=== PATIENT | male | born 1950 ===

== ENCOUNTER 2018-01-08 20:10 | Emergency (ER) | payer SELFPAY ==
[2018-01-08 20:16] VITALS: BP 154/87; PULSE 72; RESP 18; TEMP 99; O2SAT 99
--- NOTE | 2018-01-08 20:40 | ED PDOC ---
HPI: Psych/Substance Abuse Time Seen by Provider: 01/08/18 20:16 Chief Complaint (Nursing): Psychiatric Evaluation Chief Complaint (Provider): Medical Screening History Per: Patient History/Exam Limitations: no limitations Additional Complaint(s): 67 year old male with a past medical history of hypertension, alcoholism, and gastritis was brought into the ED by [facility] for a psychiatric evaluation. Patient was found ambulating in the streets of [place] in a hospital gown, prompting concern for evaluation. Patient presents to the ED with discharge papers from [facility] in [place] where he was discharged today, for alcohol withdrawal and hypertension, 9x hours prior to arrival to ED. Patient denies having any complaints. Patient states he took a bus from [place] to [place] going to [place], [place] where he is currently residing with a friend. Patient states he was stopped and brought to ED. Patient states "I don't want to be here, I don't need to be here, I'm hungry as hell". Otherwise: (-) hallucinations, (-) suicidal ideation, (-) homicidal ideation (-) trauma, (- ) fever, (-)headache, (-) dyspnea, (-) vomiting, (-) patient intent of initiating a suicide attempt. PMD: None. Past Medical History Reviewed: Historical Data, Nursing Documentation, Vital Signs Vital Signs: Last Vital Signs Temp 99 F 01/08/18 20:14 Pulse 72 01/08/18 20:14 Resp 18 01/08/18 20:14 BP 154/87 H 01/08/18 20:14 Pulse Ox 99 01/08/18 20:14 - Medical History PMH: Gastritis, HTN Other PMH: alcoholism - Family History Family History: States: No Known Family Hx - Living Arrangements Living Arrangements: Other (patient is homeless, but has been staying with a friend) - Social History Current smoker - smoking cessation education provided: Yes Alcohol: > 2 Drinks/Day (10x years) Drugs: Other (heroin) - Allergies Allergies/Adverse Reactions: Allergies Allergy/AdvReac Type Severity Reaction Status Date / Time No Known Allergies Allergy Verified 01/08/18 20:16 Review of Systems ROS Statement: Except As Marked, All Systems Reviewed And Found Negative Physical Exam - Reviewed Nursing Documentation Reviewed: Yes Vital Signs Reviewed: Yes - Physical Exam Comments: GENERAL APPEARANCE: Patient is awake, alert, oriented x 3, is resting comfortably, in no acute distress, answers questions appropriately. Ambulating in ED with a steady, unassisted gait. SKIN: Warm, dry; (-) cyanosis HEAD: (-) scalp swelling, (-) scalp tenderness. ENMT: Mucous membranes moist. Airway patent: (-) stridor. NECK: Supple, FROM HEART AND CARDIOVASCULAR: (-) irregularity CHEST AND RESPIRATORY: (-) rales, (-) rhonchi, (-) wheezes; breath sounds equal. Respirations even and nonlabored, speaking in full sentences. ABDOMEN: Soft, (-) distention, (-) tenderness, (-) guarding. NEURO AND PSYCH: Mental status as above. Affect: calm, cooperative. surgery center administrator: Intact. Pupils equal and reactive; EOMI; (-) facial asymmetry; tongue and uvula midline. Speech: clear. - ECG O2 Sat by Pulse Oximetry: 99 (RA) Pulse Ox Interpretation: Normal Medical Decision Making Medical Decision Makin:15 Clinical Impression: 67 year old male in the ED for a medical screening exam. Plan: Patient is tolerating PO intake in the ED. Given that the patient is clinically sober, with appropriate cognition and is oriented x3, patient is appropriate for discharge. No further evaluation in the ED is necessary Based on history, exam and diagnostic results, plan will be for outpatient follow up. Patient instructed to follow-up with pmd / referral provided / the clinic in 1- 2 days without fail. Return to the emergency room at any time for any new or worsening symptoms. Patient states he fully agrees with and understands discharge instructions. States that he agrees with the plan and disposition. Verbalized and repeated discharge instructions and plan. I have given the patient opportunity to ask any additional questions. Scribe Attestation: Documented by Abi Yañez, acting as a scribe for Abi Fritz. Provider Scribe Attestation: All medical record entries made by the Scribe were at my direction and personally dictated by me. I have reviewed the chart and agree that the record accurately reflects my personal performance of the history, physical exam, medical decision making, and the department course for this patient. I have also personally directed, reviewed, and agree with the discharge instructions and disposition. Disposition - Clinical Impression Clinical Impression: Encounter for medical screening examination, History of alcohol abuse, History of heroin abuse - Patient ED Disposition Is Patient to be Admitted: No Counseled Patient/Family Regarding: Studies Performed, Diagnosis, Need For Followup - Disposition Referrals: [facility] [Outside] Disposition: Routine/Home Disposition Time: 20:30 Condition: STABLE Additional Instructions: The emergency medical care you received today was directed at your acute symptoms. If you were prescribed any medication, please fill it and take as directed. It may take several days for your symptoms to resolve. Return to the Emergency Department if your symptoms worsen, do not improve, or if you have any other problems. Please contact your doctor in 2 days for re-evaluation and follow up / or call one of the physicians/clinics you have been referred to that are listed on the Patient Visit Information form that is included in your discharge packet. Bring any paperwork you were given at discharge with you along with any medications you are taking to your follow up visit. Our treatment cannot replace ongoing medical care by a primary care provider (PCP) outside of the emergency department. Instructions: Drug Abuse and Drug Addiction (DC), Alcohol Withdrawal, Alcohol Abuse and Alcoholism (DC), General (DC), Effects of Alcohol on Your Health Forms: H[employer] (Tajik) Print Language: SCOTTISH - POA Present On Arrival: None
== END 2018-01-08 20:44 | disposition home or self-care (01) ==
LOC: H.ER 20:10
DX: I10 Essential (primary) hypertension (principal); F17.200 Nicotine dependence, unspecified, uncomplicated; F10.10 Alcohol abuse, uncomplicated; F11.10 Opioid abuse, uncomplicated; Z00.8 Encounter for other general examination; Z00.00 Encounter for general adult medical examination without abnormal findings